=== PATIENT | female | born 1960 | race Caucasian/White ===

== ENCOUNTER → 2017-01-10 | Outpatient (CLI) | payer OTHER ==
[~2017-01-10] MED LIST: ACET-1138 PO; CLB200 PO; ESTR0.3T PO; ULT50X PO
--- NOTE | 2017-01-10 16:07 | MAMMOGRAPHY REPORT ---
BILATERAL DIGITAL SCREENING MAMMOGRAM TOMOSYNTHESIS WITH CAD: 01/10/2017 CLINICAL HISTORY: Routine screening examination. TECHNIQUE: Breast tomosynthesis in addition to standard 2D mammography was performed. Current study was also evaluated with a Computer Aided Detection (CAD) system. COMPARISON: Comparison is made to exams dated: 01/07/2016 mammogram, 01/02/2015 mammogram, 01/01/2014 ma mmogram, 04/15/2011 mammogram, 03/26/2010 mammogram - [facility], and 11/26/2008. BREAST COMPOSITION: There are scattered areas of fibroglandular density in both breasts. FINDINGS: The parenchymal pattern is unchanged. No developing mass, architectural distortion or clus ter of suspicious microcalcifications is seen in either breast. IMPRESSION: ACR BI-RADS CATEGORY 2: BENIGN There is no mammographic evidence of malignancy. A 1 year screening mammogram is recommended. The pa tient will receive written notification of the results. Approximately 10% of breast cancers are not detected with mammography. A negative mammographic report should not delay biopsy if a clinically suggestive mass is present. Brea Jerez M.D. ay/:01/10/2017 15:20:02 Document Clerk: Kelsie CHAVARRIA(Bruno)(Kenyatta), [facility] letter sent: Normal 1/2 BI-RADS Code: ACR BI-RADS Category 2: Benign
== END | disposition home or self-care (01) ==
LOC: C.MAMM 08:40
DX: Z12.31 Encounter for screening mammogram for malignant neoplasm of breast (principal)

== ENCOUNTER → 2017-11-29 | Outpatient (CLI) | payer OTHER ==
--- NOTE | 2017-11-29 14:57 | DIAGNOSTIC IMAGING REPORT ---
L VENOUS DOPP LOWER EXT UNILAT CLINICAL HISTORY: L LOWER LEG PAIN pain. Edema. TECHNIQUE: Venous Doppler COMPARISON STUDY: None FINDINGS: Normal study. No evidence for deep venous thrombosis. Popliteal cyst extending from popliteal fossa to the mid calf. IMPRESSION: 1. Study is negative for deep venous thrombosis. 2. Popliteal cyst extending from the popliteal fossa to the mid calf with a maximum linear dimension of 16 x 2 cm. The above report was generated using voice recognition software. It may contain grammatical, syntax or spelling errors. Electronically signed by: Ministerio Edouard M.D. 11/29/2017 2:55 PM Dictated Date/Time: 11/29/2017 2:52 PM
== END | disposition home or self-care (01) ==
LOC: C.ULTRBC 14:26
PROVIDERS: ATTEND Orthopaedic Surgery
DX: M79.662 Pain in left lower leg (principal); M71.22 Synovial cyst of popliteal space [Baker], left knee